=== PATIENT | male | born 1960 | race Caucasian/White ===

== ENCOUNTER 2024-02-10 02:25 | Outpatient (CLI) | payer MEDICAID, SELFPAY ==
[2024-02-10 12:35] LABS: HCT 45.7 % (40.0-50.0); HGB 15.7 g/dL (13.5-17.5); MCH 32.4 pg (27.0-33.0); MCHC 34.4 % (32.0-36.0); MCV 94 fL (80-95); MPV 11.1 fL (8.0-11.0); Platelet Count 243 10^3/uL (130-400); RBC 4.84 10^6/uL (4.36-5.78); RDW 13.4 % (11.8-14.1); RDW-SD 47.2 fL; WBC 8.52 10^3/uL (4.4-10.8)
[2024-02-10 12:57] LABS: Anion Gap 10.1 mmol/L (3-11); BUN 8 mg/dL (7-18); CO2 26.9 mmol/L (21.0-32.0); CREATININE 0.7 mg/dL (0.70-1.30); Calcium 9.6 mg/dL (8.5-10.1); Chloride 102 mmol/L (98-107); Estimated GFR 104.18 (mL/min/1.73m2); Glucose 94 mg/dL (74-106); Potassium 4.2 mmol/L (3.5-5.1); Sodium 139 mmol/L (136-145)
== END 2024-02-10 02:26 | disposition home or self-care (01) ==
LOC: LBO 02:26
PROVIDERS: PCP Family Medicine; Visit Provider Student in an Organized Health Care Education/Training Program
DX: M17.12 Unilateral primary osteoarthritis, left knee (principal); Z01.818 Encounter for other preprocedural examination
CPT/HCPCS: 80048; 85027

== ENCOUNTER 2024-02-10 11:35 | Outpatient (CLI) | payer MEDICAID, SELFPAY ==
--- NOTE | 2024-02-10 11:00 | DI.RAD_ITS ---
Exam(s) XR KNEE LT 1V XR STANDING ALIGNMENT EXAM: XR STANDING ALIGNMENT and XR knee LT 1 V CLINICAL HISTORY: PRE OP L TKA. TECHNIQUE: 2D digital imaging was performed. Five images were obtained. COMPARISON: CR XR KNEE 3V LT from 03/28/2023 CR XR KNEE 1 OR 2V BILAT-M2 from 09/01/2023 FINDINGS: BONES: The hips are well maintained. There is a chronic appearing well corticated bone density adjac ent to the right greater trochanter. The right knee is well maintained. In the left knee there is m arked narrowing of the medial femoral tibial joint. There osteophytes seen at the posterior patella. There is a small joint effusion. There is an enthesophyte at the anterior patella. There is again seen a ovoid well-circumscribed density projected in the lateral femoral tibial joint of the left kn ee. This was present on prior examination from 09/01/2023. The ankles are well maintained.There is no significant leg length discrepancy. SOFT TISSUE: Vascular calcifications are present. IMPRESSION: Marked degenerative changes seen in the left knee. DATA REPOSITORY: RADIATION DOSE DELIVERED:
== END 2024-02-10 11:36 | disposition home or self-care (01) ==
LOC: DIORS 11:36
PROVIDERS: PCP Family Medicine; Visit Provider Physician Assistant
DX: M17.12 Unilateral primary osteoarthritis, left knee (principal)
CPT/HCPCS: 73560; 77073

== ENCOUNTER 2024-02-25 09:09 | Day surgery (SDC) | payer MEDICAID, SELFPAY ==
[2024-02-25] VITALS (28 sets, daily range): BP systolic 154–215; BP diastolic 76–114; PULSE 52–81; RESP 14–22; TEMP 35.8–36.4; O2SAT 89–100; BMI 22.8
[2024-02-25] MEDS: Celecoxib 200 MG CAP 400 MG PO (10:02)
[2024-02-25] MEDS: Lactated Ringers 1,000 ML 80 ML IV (10:13)
--- NOTE | 2024-02-25 10:48 | PDOC.DSDIS_ITS ---
Date of service: 02/25/24 Time of Service: 10:48 Discharge Plan Disposition Patient Disposition: Home Condition: Good Discharge Details Reason For Visit: L TKR Attending Provider: Michael Mead Primary Care Provider: Armond Kennedy Home Meds and New Rx's Prescriptions: New celecoxib 200 mg capsule 200 mg PO BID Qty: 60 0RF aspirin 81 mg tablet,delayed release (DR/EC) 81 mg PO BID Qty: 60 0RF acetaminophen 500 mg tablet 1,000 mg PO TID Qty: 90 3RF pantoprazole 40 mg tablet,delayed release (DR/EC) 40 mg PO DAILY Qty: 30 0RF dexamethasone 4 mg tablet 4 mg PO DAILY Qty: 2 0RF gabapentin 300 mg capsule 300 mg PO QHS Qty: 14 0RF oxycodone 5 mg tablet 5 mg PO Q4H MDD 6 tabs PRN (Reason: pain) Qty: 20 0RF Discharge Instructions Additional Instructions: Total Knee Discharge Instructions Activity: The most important activity is to walk and to work on gentle motion (both flexion and extension). You should try to take short walks a few times a day. It is important that when resting you work on keeping the knee straight. Avoid putting a pillow behind the knee as this will encourage flexion. Work on range of motion exercises as provided by Physical Therapy. - Start outpatient physical therapy within 2 weeks. - You should wear the KAE hose on both legs for 2 weeks. You may remove these at night. You may also use any compression sock in place of the KAE hose. - Utilize [employer] to review exercises, see videos on exercises and obtain basic information pertaining to your surgery and your recovery. Dressing: Remove the Brandon wrap by 2 days after your surgery and put on the KAE stocking given to you from the hospital. Keep the surgical dressing (underneath the BRANDON wrap) in place for at least one week. After the first week it may be removed and replaced with light gauze and tape or nothing. The wound and dressing may get wet after 3 days but avoid soaking the dressing or otherwise it will need to be changed. Many people prefer covering the dressing with cling wrap (saran wrap) to minimize it from getting soaked. If it gets wet, just pat dry. If it starts to peel off then it will need to be changed. Medications: - You should take Tylenol and anti-inflammatory Celebrex as your primary pain control medications. If the Celebrex is too expensive or not covered, please call the office for another alternative (Advil/Ibuprofen or Naproxen/Aleve) - You have been prescribed a stronger pain medication Oxycodone for breakthrough pain, take as needed as prescribed. - You have also been prescribed a stomach acid reduction agent Pantoprozole to help reduce stomach acid and reflux. - You have been prescribed Gabapentin to take at night for restlessness and nerve pain. - You will be taking Aspirin 81mg twice a day for DVT prevention unless instructed otherwise. - You have also been prescribed Decadron to take to control post-operative nausea and pain. You will start this tomorrow. - If you have constipation you should take Colace or Miralax (both o [id number]). It takes most people 3-4 days to have a bowel movement. Follow-up: 2 weeks If you have any acute concerns or questions, please do not hesitate to contact the office at [phone]. You may contact Dr. Mead with any questions after hours through the hospital at [phone] or on his cell phone at [phone]. Referrals: Michael Mead MD [ [facility] STAFF PHYSICIAN] - Equipment/Supplies: Walker Activity:: Activity as Tolerated Shower/Bathe:: 72 hours Diet:: As Tolerated Discharge Orders Discharge Orders: Discharge Order (Routine); Ordered 02/25/24 Ordered By: Aaron Rocha DS: Diagnosis Discharge Diagnosis (1) Primary osteoarthritis of left knee: Status: Acute
--- NOTE | 2024-02-25 11:28 | W.ANESPRE ---
General Info Date of Service Date Performed: 02/25/24 Height: 5 ft 7 in Weight: 66.1 kg Body Mass Index (BMI): 22.8 Surgical Procedure: Operation Date: 02/25/24 11:40 Proposed Procedure Side Surgeon p Knee Total Arthroplasty, Cementless Left Michael Mead MD Meds Allergies and Home Medications Allergies Allergy/AdvReac Type Severity Reaction Status Date / Time No Known Allergies Allergy Verified 02/25/24 09:59 Home Medication ?Medication ?Instructions ?Recorded acetaminophen 500 mg tablet 1,000 mg (2 x 500 mg) PO TID #90 02/25/24 tabs aspirin 81 mg tablet,delayed 81 mg PO BID #60 tabs 02/25/24 release celecoxib 200 mg capsule 200 mg PO BID #60 caps 02/25/24 dexamethasone 4 mg tablet 4 mg PO DAILY #2 tabs 02/25/24 gabapentin 300 mg capsule 300 mg PO QHS #14 caps 02/25/24 oxycodone 5 mg tablet 5 mg PO Q4H PRN pain #20 tabs 02/25/24 pantoprazole 40 mg tablet,delayed 40 mg PO DAILY #30 tabs 02/25/24 release Current Visit Medications: Current Medications Generic Name Dose Route Start Last Admin Trade Name Freq PRN Reason Stop Dose Admin Acetaminophen 1,000 mg 02/25/24 06:00 Acetaminophen 500 Mg Tab PO 02/25/24 23:59 PREOP IMER Acetaminophen 1,000 mg 02/25/24 10:46 Acetaminophen 500 Mg Tab PO 03/26/24 10:45 TID PRN PRN Analgesia Celecoxib 400 mg 02/25/24 06:00 02/25/24 10:02 Celecoxib 200 Mg Cap PO 02/25/24 23:59 400 mg PREOP IMER Administration Docusate Sodium 100 mg 02/25/24 10:46 Docusate Sodium 100 Mg Cap PO 03/26/24 10:45 BID PRN PRN Constipation Gabapentin 300 mg 02/25/24 06:00 Gabapentin 300 Mg Cap PO 02/25/24 23:59 PREOP IMER Ringer's Solution 1,000 mls @ 80 mls/hr 02/25/24 06:00 02/25/24 10:13 IV 02/25/24 23:59 80 mls/hr INFUSION IMER Administration Cefazolin Sodium/Dextrose 2 gm in 50 mls @ 100 mls/hr 02/25/24 06:00 Ancef Duplex IVPB 02/25/24 23:59 PREOP IMER Tranexamic Acid/Sodium Chloride 1,000 mg in 100 mls @ 600 mls/hr 02/25/24 06:00 IVPB 02/25/24 23:59 PREOP IMER IV Miscellaneous Supplies 1 each 02/25/24 06:00 Iv Access IV 02/25/24 23:59 DIRECTED IMER Ondansetron HCl 4 mg 02/25/24 10:46 Ondansetron 4 Mg/2 Ml Vial IVP 03/26/24 10:45 Q6H PRN PRN Nausea Oxycodone HCl 0 mg 02/25/24 10:46 Oxycodone 5 Mg Tab PO 03/26/24 10:45 Q3H PRN PRN Pain Polyethylene Glycol 17 gm 02/25/24 10:46 Polyethylene Glycol 3350 17 Gm Packet PO 03/26/24 10:45 BID PRN PRN Constipation Sodium Chloride 0 ml 02/25/24 06:00 Normal Saline Flush 10 Ml Syr IV 02/25/24 23:59 PRN PRN Sodium Chloride 0 ml 02/25/24 06:00 Normal Saline 10 Ml Vial IJ 02/25/24 23:59 DIRECTED PRN Sterile Water 0 ml 02/25/24 06:00 Water,Injection,Sterile 10 Ml Vial IJ 02/25/24 23:59 DIRECTED PRN PFSH Active Problems Active Problems: Problem Status Onset Code Primary osteoarthritis of left knee Acute M17.12 Nicotine dependence Acute F17.200 Lumbosacral radiculopathy Acute M54.17 Medical History Medical History Hepatitis C carrier GERD (gastroesophageal reflux disease) Depressive disorder Surgical History Surgical History H/O inguinal hernia repair Tobacco Smoking/Tobacco Use Status: Current every day Tobacco Type: cigars Alcohol Alcohol Intake: former Substance Use Substance use: Current Sobriety Substance use type: does not use 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 Vital Signs and Lab Results Vital Signs Most Recent Vital Signs in EMR: Most Recent Vital Signs Temp Pulse Resp BP Pulse Ox 36.3 C L 78 18 192/100 H 98 02/25/24 09:30 02/25/24 09:30 02/25/24 09:30 02/25/24 09:30 02/25/24 09:30 Lab Results Blood Type / Crossmatch: No Data to Display Complete Blood Count: White Blood Count 8.52 10^3/uL (4.4-10.8) 02/10/24 11:55 Red Blood Count 4.84 10^6/uL (4.36-5.78) 02/10/24 11:55 Hemoglobin 15.7 g/dL (13.5-17.5) 02/10/24 11:55 Hematocrit 45.7 % (40.0-50.0) 02/10/24 11:55 Platelet Count 243 10^3/uL (130-400) 02/10/24 11:55 Complete Metabolic Panel: Sodium 139 mmol/L (136-145) 02/10/24 11:55 Potassium 4.2 mmol/L (3.5-5.1) 02/10/24 11:55 Chloride 102 mmol/L (98-107) 02/10/24 11:55 Carbon Dioxide 26.9 mmol/L (21.0-32.0) 02/10/24 11:55 BUN 8 mg/dL (7-18) 02/10/24 11:55 Creatinine 0.7 mg/dL (0.70-1.30) 02/10/24 11:55 Est GFR (CKD-EPI 2020) 104.18 (mL/min/1.73m2) 02/10/24 11:55 Calcium 9.6 mg/dL (8.5-10.1) 02/10/24 11:55 Glucose 94 mg/dL (74-106) 02/10/24 11:55 Liver Function Panel: No Data to Display Coagulation Panel: No Data to Display Cardiac Panel: No Data to Display Arterial Blood Gas: No Data to Display Venous Blood Gas: No Data to Display Pancreas Panel: No Data to Display Thyroid Panel: No Data to Display Infectious Disease: No Data to Display Blood Cultures: No Data to Display Toxicology Panel: No Data to Display Anesthesia Assessment and Plan Anesthesia History Personal History: No History of Anesthesia Complications Family History: No Family History of Anesthesia Complications Exercise Tolerance Exercise Tolerance: Unknown (uses a crutch at home, states that he does go up stairs without issues. ) Cardiac & Pulmonary Exam Cardiac Exam: Normal S1/S2 Heart Sounds Pulmonary Exam: Clear Bilateral Breath Sounds Implantable Cardiac Device Does patient have a Pacemaker or an ICD?: No Airway Exam Known Difficult Airway: No Mallampati Class: 4 Mouth Opening: Narrow (< 3cm) Thyromental Distance: Less than 3 cm Neck Range of Motion: Limited ROM Neck Circumference: Normal Teeth Condition: Edentulous ASA Classification ASA Score: ASA 2 Emergency Case?: No NPO Status NPO Status: NPO Clears >2 hours, Solids >8 hours Anesthesia Plan Resuscitation Status: Full Code Anesthesia Technique: General Anesthesia Airway Planned: Endotracheal Tube Pain Management: Surgeon and patient request nerve block Monitors Used: Standard Monitors Preoperative Comments:: 64 yo male for TKA. difficult historian. seems unclear of his health history at times. while doing preop he had to urinate, which took him a substantial amount of time, he denies any prostate issues. Sig PMHx: GERD (pantoprazole. he denies GERD, no issues laying flat or heart burn with meal or otherwise), depression, cigars (2 per day, does inhale). back surgery, denies metal, endorses bone grafts. Stress: LV 53%. Discussed regional anesthesia and spinal vs GA. He does not want a spinal, he requests GA.
--- NOTE | 2024-02-25 12:33 | W.ANESNERVE ---
Nerve Block Single Injection Procedure Date and Time Date Performed: 02/25/24 Procedure Start: 12:17 Location Where Procedure Performed Procedure Location: Day Surgery Unit Reason Performed: Postoperative Analgesia Requesting Provider: Michael Mead Timeout Performed Timeout Performed: Yes Monitoring Used ECG, Blood Pressure, SpO2 and See EMR for corresponding vital signs Sterility Sterility: Hand Hygiene, Surgical Cap, Surgical Mask, Sterile Gloves and Chlorhexidine Sedation Given During Procedure Sedation Given (Indicate Dose Given): No Sedation given Patient Mental Status Patient Mental Status: Awake Nerve Block 1st Nerve Block: Laterality: Left Block Type: Adductor Canal Ultrasound Image Saved?: Yes Needle / Catheter Used: 100mm SonoPlex II Local Anesthetic Bolus (Indicate Dose Given): Lidocaine used for local infiltration of skin, Injected in 3-5ml increments after negative blood aspiration and Bupivacaine 0.25% Dose:: 10ml Additives (Indicate Dose Given): None Ultrasound: Sterile probe cover and gel used Nerve Stimulator: Supplement to Ultrasound use Paresthesia: None Procedure Tolerated: No Complications and Patient tolerated well Procedure Outcome: Successful Performed By: Tim Raymundo Supervised By: Luis Wallis 2nd Nerve Block: Laterality: Left Block Type: Other (anterior femoral cutaneous ) Ultrasound Image Saved?: Yes Needle / Catheter Used: 100mm SonoPlex II Local Anesthetic Bolus (Indicate Dose Given): Lidocaine used for local infiltration of skin, Injected in 3-5ml increments after negative blood aspiration and Bupivacaine 0.25% Dose:: 5ml Additives (Indicate Dose Given): None Ultrasound: Sterile probe cover and gel used Nerve Stimulator: Supplement to Ultrasound use Paresthesia: None Procedure Tolerated: No Complications and Patient tolerated well Procedure Outcome: Successful Performed By: Tim Raymundo Supervised By: Luis Wallis
[2024-02-25] MEDS: ceFAZolin 2 GM/50 ML BAG IVPB (12:44)
[2024-02-25] MEDS: TRANEXAMIC ACID/SOD. CHL. 1,000 MG/100 ML BAG 600 MG IVPB (12:55)
[2024-02-25] MEDS: ACETAMINOPHEN 1,000 MG/100 ML BTL 400 MG IVPB (14:15)
[2024-02-25] MEDS: fentaNYL 100 MCG/2 ML VIAL IVP ×2 (14:43→15:02)
--- NOTE | 2024-02-25 15:02 | W.ANESPOSTOP ---
Postoperative Evaluation Date, Time and Location Date Performed: 02/25/24 Time Performed: 15:02 Patient Location: PACU Vital Signs Most Recent Imported Vital Signs: Most Recent Vital Signs Temp Pulse Resp BP Pulse Ox 36.4 C L 68 15 210/92 H 96 02/25/24 14:55 02/25/24 14:55 02/25/24 14:56 02/25/24 14:55 02/25/24 14:56 Pain Score Most Recent Pain Score: Most Recent Pain Score Pain Level 0 02/25/24 14:25 Assessment Mental Status: Awake (Alert & Oriented to Patient Baseline) Airway and Respiratory Function: Patent airway with normal (patient baseline) respiratory exam Cardiovascular Function: Hemodynamically Stable Hydration Status: Adequately Hydrated Nausea & Vomiting: No Nausea or Vomiting Pain: Pain is tolerable per patient Peripheral Nerve Block: Regional nerve block not resolved at time of post operative discharge
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
--- NOTE | 2024-02-25 20:52 | ROE_ITS ---
Date of service: 02/25/24 Time of Service: 12:10 Operative Note Operative Note DATE OF PROCEDURE: 02/25/24 PRE-OP DIAGNOSIS: Left Knee Osteoarthritis POST-OP DIAGNOSIS: same PROCEDURE: Left Total Knee Replacement SURGEON: Michael Mead CASTING AND PASTING SUPERVISOR: Wilton Rocha ANESTHESIA TYPE: Spinal Refer to Anesthesia Record PATHOLOGY: none sent TOURNIQUET TIME: 0 COMPLICATIONS: None Patient was transported to: PACU Patient's condition: stable Implants: 1. Depuy Attune Cementless Cruciate Retaining Femoral Component, Size 7 2. Depuy Attune Cementless Fixed Bearing Tibial Component, Size 7 3. Depuy Attune 7x8 CR/FB Poly 4. Depuy Attune Patellar Component, Size 38 Indications: I have seen Alessio in clinic for symptoms of knee arthritis, confirmed with radiographic findings. He has exhausted nonoperative methods and was having significant limitations in daily function and desired better function and less pain. I discussed the technical details of a knee replacement. I explained the risks of the procedure to include, but not limited to, bleeding, infection, pain, stiffness, fracture, damage to nerves and vessels, damage to muscles and tendons, loosening, need for repeat procedure, blood clot and cardiopulmonary demise. Despite these risks, Alessio elected to proceed. Findings: There was significant signs of arthritis throughout the knee. Procedure Description: Alessio was greeted in the preoperative holding area where the correct side was identified and marked. The consent was reviewed with the patient and signed. The history and physical was updated. All questions were answered. Preoperative medications were administered: Acetaminophen 1000mg, Celebrex 400mg, and Gabapentin 300mg. An adductor canal block was then administered by the anesthesia team in the P ACU. Alessio was taken back to the operating room. A general anesthestic was then administered. The patient was placed into the supine position on the operating room table. A nonsterile tourniquet was placed high onto the leg but only used for cementing. Posts were placed for positioning during the procedure. All bony prominences were well padded. Prophylactic antibiotics in the form of Cefazolin were administered. 1g of Tranxemic Acid was given intravenously within 30 minutes of incision. The left leg was then prepped with Chloraprep and draped in a standard fashion with impervious stockinette. A second prep with Chloraprep was performed prior to application of Iodine impregnated skin protection. A timeout to confirm correct identity, side and site, procedure, allergies, anesthesia, and medical concerns was performed. With the knee in some flexion, a midline incision was made overlying the knee. Full thickness skin flaps were raised once the extensor mechanism was encounter ed. These were raised medially and laterally. Any bleeding was controlled with electrocautery. Once the extensor mechanism was fully exposed, a medial parapatellar arthrotomy was performed in a flexed position. All bleeding from the arthrotomy and the geniculate arteries was coagulated. A medial subperiosteal peel was performed with electrocautery to the midcoronal plane. Due to the significant varus deformity the entire medial tibial plateau was exposed. The fat pad was removed while keeping the patellar tendon protected. The anterior distal femur synovium was removed for later visualization. The ACL and PCL were resected and the anterior horn of the lateral meniscus was transected. The knee was then flexed with the patella everted. Large osteophytes from the tibia were removed. Large osteophytes from the femur were removed. Using a step drill, and based on preoperative templating, the femoral canal was entered. This was done with a step drill without any difficulty. The intramedullary distal femoral cut guide was inserted, set to a 4 degree valgus cut and 9mm cut thickness. The distal femoral cut guide was then held in position and pinned. With the soft tissues protected, the distal cut was performed. This was passed over a few times to ensure a planar cut. I then turned attention to the tibia. The extramedullary guide was placed onto the leg. The distal aspect was slid medial to adjust for position of center of ankle and stay in line with shaft of the tibia. Approximately 3-5 degrees of posterior slope was kept in the proximal cutting guide. The center of the guide was aligned with the PCL. The stylus was used to assess cut thickness. The medial side, most involved side, was set for a 4mm cut. This was then held in position and pinned into place with 2 additional pins and a cross pin for stability. The medial and lateral collateral ligaments were protected and the cut was performed. With this completed, it was assessed and noted to be of appropriate dimensions. The guide was removed. A spacer block was inserted and the knee was brought into extension. The 7mm spacer block provided full extension, without hyperextension and with stability of both the medial and lateral collateral ligaments was assessed. The pins from the femur and the tibia were then removed. The distal femur was then sized. The anterior stylus was placed onto the lateral ridge of the anterior femur. This indicated a size 7 femur. The external rotation of the guide was adjusted to 3 degrees to match the epicondylar axis, perpendicular to Woodward?s line. The 4-in-1 cutting guide was the placed. The posterior medial femur cut was evaluated and appeared of good thickness. The spacer block was inserted underneath the cutting guide and stability was confirmed in 90 degrees of flexion. An miky wing was used to confirm appropriate position of the anterior cut to avoid notching. This cutting guide was ensured to be flush on the cut surface and then pinned into place with headed pins. While protecting the soft tissues, quad tendon, and collateral ligaments, the anterior and posterior cuts were performed with a saw. The central two pins were removed and the posterior and anterior chamfers were cut next. The notch-cutting guide was placed. This was pinned to lateralize the femoral component as much as possible while keeping it flush on the cut surface. This was then pinned into position. A reciprocating saw was used to make the notch cut. A rasp smoothed the cut surfaces. The medial and lateral menisci were removed. A trial femoral component was then inserted, impacted down to the cut surfaces, and the lug holes were drilled. A provisional trial tibial component was placed and the knee was brought through range of motion. There was noted to be excellent extension and flexion. There was no significant instability. The polyethylene was trialed until there was good flexion and extension with excellent stability to the medial and lateral collaterals. The patella was tracking without thumbs. A size 8mm polyethylene component provided the best range of motion and stability with less than 2mm gapping with medial and lateral stress and full extension without significant hyperextension. The tibial cut surface was fully exposed. The tibia was then sized as a 7. The tibia had been previously marked during trialing to correspond to the center of the tibial component to help with rotation. The trial was aligned to this wilton, approximately rotated to the medial 1/3rd of the tibial tubercle. The trial was pinned into place. The tibia was prepared with a reamer and a keel punch and lug holes. The knee was then brought into extension and the patella was measured as 26mm. Using the patellar clamp and cut guide, this was resected to a flat surface with at least 13mm of thickness remaining. The size 38 patella fit the best. This was oriented and then clamped into position. The lugs were drilled. The trial components were removed. The final components were opened on the back table. The periosteal and capsular tissues, especially posteriorly, around the knee were then systematically injected with a periarticular cocktail consisting of 246mg of Ropivacaine, 0.5mg of Epinephrine, 0.08mg of Clonidine, and 30mg of Ketorolac, diluted to 100cc. On the back table, with the implants opened, the cement was mixed. One batch of high viscosity cement was prepared with vacuum assistance. After the cement was ready a small amount was placed on the cut surface of the patella and the echols llar button was clamped into position and held. While the cement was hardening, the cementless knee components were placed. Starting with the tibial component, the tibia was subluxed anteriorly and the lug holes of the component were lined up. The tibia was then impacted with an impactor and mallet until the tibial component was in contact with the tibia. The final polyethylene component was i nserted. Then, the femoral component was inserted. The lug holes were aligned and the component was impacted into position. The knee was irrigated with Surgiphor Betadine solution. This was allowed to sit in the knee for 3 minutes and then it was irrigated out with saline. After the cement had finally cured, approximately 15min, the clamp was removed from the patella and the knee was taken through range of motion. The patella was tracking with a no-thumbs technique. The capsule was then reapproximated with a No. 1 Vicryl at multiple locations. The capsule was finally closed with a No. 2 Stratafix, barbed suture. The second dosing of 1g TXA was started. Deep tissues were then reapproximated with 0 Vicryl and 2-0 Vicryl. The skin was closed with a running 3-0 Monocryl in a subcuticular fashion. This was reinforced with skin glue. A Mepilex silver dressing was applied along with a [id number] DIVYA wrap. A CryoCuff was applied. Alessio was transferred to the hospital bed without difficulty an suffering no apparent complication. He has a good prognosis. Physical therapy will start today and without restrictions, weight-bearing as tolerated. Aspirin 81mg BID will be used for DVT prophylaxis.
== END 2024-02-25 16:56 | disposition home or self-care (01) ==
PROVIDERS: PCP Family Medicine; Visit Provider Student in an Organized Health Care Education/Training Program
PROC: (CPT 27447; principal; 2024-02-25 11:30)
DX: M17.12 Unilateral primary osteoarthritis, left knee (principal); K21.9 Gastro-esophageal reflux disease without esophagitis; F32.A Depression, unspecified; F17.210 Nicotine dependence, cigarettes, uncomplicated
CPT/HCPCS: 27447; 76942; 97162; 97530; C1776; J0131; J0665; J0690; J1100; J1171; J2371; J2401; J2405; J2704; J3010; J3475

== ENCOUNTER 2024-04-12 14:28 | Outpatient (CLI) | payer MEDICAID, SELFPAY ==
--- NOTE | 2024-04-12 11:30 | DI.RAD_ITS ---
Exam(s) XR KNEE LT 2V AP,LAT EXAM: XR KNEE LT 2V AP,LAT h CLINICAL HISTORY: 1ST POST OP S/P L TKA. TECHNIQUE: 2D digital imaging was performed. COMPARISON: CR XR STANDING ALIGNMENT from 02/10/2024 CR XR KNEE LT 1V from 02/10/2024 FINDINGS: Two views: There has been interval surgery with placement of a left knee prosthesis. No evidence of fracture nor loosening. No evidence of osteomyelitis. IMPRESSION: Satisfactory stable appearance of the recently placed prosthesis DATA REPOSITORY: RADIATION DOSE DELIVERED:
== END 2024-04-12 14:29 | disposition home or self-care (01) ==
LOC: DIORS 14:28
PROVIDERS: PCP Family Medicine; Visit Provider Student in an Organized Health Care Education/Training Program
DX: Z96.652 Presence of left artificial knee joint (principal); Z47.1 Aftercare following joint replacement surgery
CPT/HCPCS: 73560

== ENCOUNTER 2024-05-24 15:49 | Outpatient (CLI) | payer MEDICAID, SELFPAY ==
--- NOTE | 2024-05-24 11:30 | DI.RAD_ITS ---
Exam(s) XR ELBOW LT COMPLETE EXAM: XR ELBOW LT COMPLETE CLINICAL HISTORY: eval L elbow pain and swelling after fall. TECHNIQUE: 2D digital imaging was performed of the left elbow. Six images were obtained. AP, later al and oblique views were obtained. COMPARISON: No exams were available for comparison FINDINGS: Examination limited by patient positioning. BONES: No definite acute fracture is appreciated. On series 3, image 1, there is a question of a luce ncy through the coronoid process. No bony destructive lesion is seen. Small enthesophytes are seen at both the medial and lateral epicondylar. There is a tiny well-circumscribed density adjacent to the medial epicondyle which appears old. JOINTS: The elbow is normally aligned. No joint effusion is seen. SOFT TISSUE: There is significant soft tissue swelling. No soft tissue gas is seen. IMPRESSION: 1. No definite acute fracture is seen. However the examination is limited by patient positioning. Th ere is a question of a lucency seen through the coronoid process as described above. If there is cont inued clinical concern, a repeat examination or CT scan should be considered. 2. Significant soft tissue swelling of the elbow. No soft tissue gas is appreciated. DATA REPOSITORY: RADIATION DOSE DELIVERED:
== END 2024-05-24 15:50 | disposition home or self-care (01) ==
LOC: DIORS 15:49
PROVIDERS: PCP Family Medicine; Visit Provider Student in an Organized Health Care Education/Training Program
DX: M25.522 Pain in left elbow (principal)
CPT/HCPCS: 73080

== ENCOUNTER 2025-03-07 10:35 | Outpatient (CLI) | payer MEDICAID, SELFPAY ==
--- NOTE | 2025-03-07 09:15 | DI.RAD_ITS ---
Exam(s) XR KNEE LT 2V AP,LAT EXAM: XR KNEE LT 2V AP,LAT CLINICAL HISTORY: ANNUAL F/U L TKA. TECHNIQUE: 2D digital imaging was performed. Two images were obtained. AP and lateral views were obtained. COMPARISON: CR XR KNEE LT 2V AP,LAT from 04/12/2024 FINDINGS: BONES: There are stable post operative changes of a left total knee arthroplasty present. No fracture or dislocation. JOINTS: The orthopedic hardware is in good position. No evidence of hardware loosening. SOFT TISSUE: Dystrophic calcifications are seen posterior to the patella. Atherosclerotic calcifications are seen in the soft tissues. IMPRESSION: Stable left total knee arthroplasty. DATA REPOSITORY: RADIATION DOSE DELIVERED:
== END 2025-03-07 10:36 | disposition home or self-care (01) ==
LOC: DIORS 10:35
PROVIDERS: PCP Family Medicine; Visit Provider Student in an Organized Health Care Education/Training Program
DX: Z96.652 Presence of left artificial knee joint (principal)
CPT/HCPCS: 73560